=== PATIENT | male | born 1970 | race African-American/Black ===

== ENCOUNTER 2020-11-29 15:51 | Emergency (ER) | payer OTHER ==
[2020-11-29 16:01] VITALS: BP 157/101; PULSE 85; TEMP 98.2; BMI 18.6
[2020-11-29] MEDS ORDERED: KETOROLAC TROMETHAMINE 30 MG/1 ML VIAL IM ONE (16:44)
[2020-11-29] MEDS ORDERED: KETOROLAC TROMETHAMINE 30 MG/1 ML VIAL ONE (16:47)
== END 2020-11-29 17:35 | disposition home or self-care (01) ==
LOC: JERFT 15:51
PROC: 3E0333Z Introduction of Anti-inflammatory into Peripheral Vein, Percutaneous Approach (ICD-10-PCS; principal; 2020-11-29)
DX: R07.81 Pleurodynia (principal); M94.0 Chondrocostal junction syndrome [Tietze]
CPT/HCPCS: 71046-TC-FY; 71101-TC-LT-FY; 99284-25